=== PATIENT | female | born 1955 | race Caucasian/White ===

== ENCOUNTER 2017-09-24 20:04 | Emergency (ER) | payer BC ==
[~2017-09-24] VITALS: Ht 172.7 cm; Wt 84.6 kg
[~2017-09-24 20:04] MED LIST: Ascorbic Acid,Ester- PO; Tenormin PO
[2017-09-24] MEDS ORDERED: AUGMENTIN875 MG PO (22:46)
[2017-09-24 22:55] VITALS: BP 158/75
== END 2017-09-24 22:56 | disposition home or self-care (01) ==
LOC: EME 20:04
DX: S61.012A Laceration without foreign body of left thumb without damage to nail, initial encounter (principal); S61.211A Laceration without foreign body of left index finger without damage to nail, initial encounter; S61.032A Puncture wound without foreign body of left thumb without damage to nail, initial encounter; S61.231A Puncture wound without foreign body of left index finger without damage to nail, initial encounter; W54.0XXA Bitten by dog, initial encounter; Z23 Encounter for immunization; Z79.82 Long term (current) use of aspirin
CPT/HCPCS: 73130; 99281; 99284; S0020